=== PATIENT | female | born 1995 | race Caucasian/White ===

== ENCOUNTER 2019-10-02 19:21 | Emergency (ER) | payer OTHER, BC, SELFPAY ==
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
[2019-10-02 19:40] VITALS: BP 136/88; PULSE 97; RESP 22; TEMP 37.1; O2SAT 100
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
[2019-10-03 00:14] VITALS: BP 120/60; PULSE 80; RESP 20; O2SAT 100
== END 2019-10-03 00:15 | disposition home or self-care (01) ==
PROVIDERS: Emergency Provider Emergency Medicine; PCP Family Medicine
DX: M54.2 Cervicalgia (principal); S29.9XXA Unspecified injury of thorax, initial encounter; V49.40XA Driver injured in collision with unspecified motor vehicles in traffic accident, initial encounter
CPT/HCPCS: 72125; 72128; 81025; 99284

== ENCOUNTER 2021-09-12 07:00 | Emergency (ER) | payer BC, OTHER, SELFPAY ==
--- NOTE | ~2021-09-12 | US_ITS ---
EXAMINATION: US OB <=14 wk fetus w TV DATE: 09/12/2021 09:13 INDICATION: Vaginal bleeding during first trimester of TECHNIQUE: Real-time pelvic ultrasound utilizing both a transvaginal and transabdominal probe was pe rformed. The interpreting radiologist was not present for the study. COMPARISON: None. FINDINGS: The uterus measures 8.7 x 6.7 x 4.3 cm. There is an intrauterine gestational sac. A 1-2 mm yolk sac is identified but no definitive pole yet evident. The mean sac diameter measures 11 mm, which c orrelates with an estimated gestational age of 5 weeks and 2 days. The right ovary measures 3.4 x 2.5 x 2.0 cm. The left ovary measures 2.2 x 1.4 x 1.2 cm. Normal vascu lar flow with arterial and venous waveforms in both ovaries. There is small amount of anechoic free f luid in the cul-de-sac. IMPRESSION: 1. Single intrauterine gestational sac with yolk sac but no discernible pole likely due to matheus y stage of . 2. Gestational age by ultrasound based upon 11 mm mean sac diameter of 5 weeks 2 day(s) with ultraso und estimated date of delivery ([facility]) of 05/13/2022. Reviewed, dictated and finalized at location A. HING MANAGER IMPRESSION: 1. Single intrauterine gestational sac with yolk sac but no discernible p ole likely due to early stage of . 2. Gestational age by ultrasound based upon 11 mm mean sac diameter of 5 weeks 2 day(s) with ultrasound estimated date of delivery ([facility]) of 05/13/2022.
[2021-09-12 07:12] VITALS: BP 117/76; PULSE 98; RESP 16; TEMP 36.6; O2SAT 98
--- NOTE | 2021-09-12 07:32 | ED.FEMALEGU ---
HPI - Female Genitourinary General Chief complaint: DIE CASTER Stated complaint: 7 weeks , vaginal bleeding Time Seen by Provider: 09/12/21 07:31 Source: patient and family Mode of arrival: ambulatory Limitations: no limitations History of Present Illness HPI Narrative: Patient presents with sudden onset with nausea and vaginal bleeding that started this morning. Patient is 7 weeks , positive home test. Did not see any STONEWORKING BELT SANDER yet. Patient is one para zero zero. Last menstrual period July 29, 2021 patient is not vaccinated for COVID-19. Patient reports that her vaginal bleeding this morning feels like her menstrual cycle. Currently patient denying any symptoms. Related Data Home Medications Medication Instructions Recorded Confirmed prenat vit 17-ocml-hiaoh-om3,6 cap PO 09/12/21 Allergies Allergy/AdvReac Type Severity Reaction Status Date / Time No Known Allergies Allergy Verified 09/12/21 07:15 [facility] Social History Social History (Updated 10/02/19 @ 21:28 by Catherine Renner PA-C) Smoking status: Never smoker Substance use: never Gender identity (if verbalized by the patient): Female Exam Narrative: General appearance: Well-developed, well-nourished Skin: Normal color Head: Normocephalic, nontraumatic Eyes: Clear conjunctiva ENT: Oropharynx normal, ears normal, nose normal Neck: Supple, nontender Chest and respiratory: Airway patent, no respiratory distress, no accessory muscle use Heart: Regular rate/rhythm Abdomen: Soft, nontender, no organomegaly, quiet bowel sounds Vascular: Normal peripheral pulses, normal capillary refill. Musculoskeletal: Normal range of motion, nontender back Neurologic: Alert and oriented ?3, HABITAT MANAGEMENT COORDINATOR is normal as tested, no gross motor deficit : Speculum Exam - Vagina: normal appearance of the vagina and vaginal bleeding (Retaining dark red blood around the cervix, no active bleeding) Speculum Exam - Cervix: normal appearance of the cervix, normal palpation and Cervical os closed Bimanual exam- vagina & uterus: normal bimanual exam and normal palpation Course Course Emergency Course: Stable Vital Signs Vital signs: Vital Signs Temperature 36.6 C 09/12/21 07:12 Pulse Rate 98 09/12/21 07:12 Respiratory Rate 16 09/12/21 07:12 Blood Pressure 117/76 09/12/21 07:12 Pulse Oximetry 98 09/12/21 07:12 Temperature 36.6 C 09/12/21 07:12 Pulse Rate 98 09/12/21 07:12 Respiratory Rate 16 09/12/21 07:12 Blood Pressure 117/76 09/12/21 07:12 Pulse Oximetry 98 09/12/21 07:12 MDM - Female Genitourinary MDM Narrative Medical decision making narrative: Threatened , miscarriage is main concern. Differential Diagnosis Differential diagnosis: Likely other (Threatened , miscarriage) Lab Data Result diagrams: 09/12/21 07:35 Labs: Lab Results 09/12/21 09/12/21 09/12/21 Range/Units 07:35 07:35 07:35 WBC 6.9 (4.5-10.0) K/mm3 RBC 4.26 (4.2-5.4) M/mm3 Hgb 13.3 (12.0-15.0) g/dL Hct 38.9 (37.0-47.0) % MCV 91.3 (80-100) fl MCH 31.2 (26-34) pg MCHC 34.2 (32-36) g/dl RDW 11.6 (11.5-14.5) % Plt Count 205 (150-375) k/mm3 MPV 9.3 (7.4-10.4) fl Immature Gran % (Auto) 0.4 (0-0.5) % Neut % (Auto) 80.3 H (45.5-73.1) % Lymph % (Auto) 14.7 L (18.3-44.2) % [place] % (Auto) 4.4 (2.6-8.5) % Eos % (Auto) 0.1 (0-4.4) % Baso % (Auto) 0.1 L (0.2-1.2) % Lymph # (Auto) 1.01 (0.9-3.2) K/mm3 [place] # (Auto) 0.3 (0.1-0.6) K/mm3 Eos # (Auto) 0.0 (0-0.3) K/mm3 Baso # (Auto) 0.0 (0.0-0.1) K/mm3 Abs Immat Gran (auto) 0.03 (0.
[2021-09-12 07:43] LABS: Basophils Percent Auto 0.1 % (0.2-1.2); Eosinophils Percent Auto 0.1 % (0-4.4); Hematocrit 38.9 % (37.0-47.0); Hemoglobin 13.3 g/dL (12.0-15.0); Immature Granulocyte Absolute 0.03 K/mm3 (0.00-0.031); Immature Granulocyte Percent A 0.4 % (0-0.5); Lymphocytes Absolute Auto 1.01 K/mm3 (0.9-3.2); Lymphocytes Percent Auto 14.7 % (18.3-44.2); Mean Corpuscular HGB Conc 34.2 g/dl (32-36); Mean Corpuscular Hemoglobin 31.2 pg (26-34); Mean Corpuscular Volume 91.3 fl (80-100); Mean Platelet Volume 9.3 fl (7.4-10.4); Monocytes Absolute Auto 0.3 K/mm3 (0.1-0.6); Monocytes Percent Auto 4.4 % (2.6-8.5); Neutrophils Absolute Auto 5.5 K/mm3 (1.3-6.7); Neutrophils Percent Auto 80.3 % (45.5-73.1); Platelet Count Result 205 k/mm3 (150-375); Red Blood Count 4.26 M/mm3 (4.2-5.4); Red Cell Distribution Width 11.6 % (11.5-14.5); White Blood Count 6.9 K/mm3 (4.5-10.0)
--- NOTE | 2021-09-12 10:14 | PC.NURSE ---
pelvic exam performed by provider with marine underwriter assistance
[2021-09-12 10:42] VITALS: BP 109/72; PULSE 92; RESP 16; O2SAT 98
== END 2021-09-12 10:47 | disposition home or self-care (01) ==
PROVIDERS: Emergency Provider Emergency Medicine
DX: O20.0 Threatened abortion (principal); Z3A.01 Less than 8 weeks gestation of pregnancy
CPT/HCPCS: 36415; 76801; 76817; 84702; 85025; 85461; 99284

== ENCOUNTER 2022-05-05 08:28 | Emergency (ER) | payer BC, OTHER, SELFPAY ==
[2022-05-05 08:37] VITALS: BP 105/75; PULSE 91; RESP 16; TEMP 36.5; O2SAT 98
--- NOTE | 2022-05-05 08:45 | ED.SKABFB ---
HPI - Skin/Abscess/Foreign Bdy General Chief complaint: Skin/Abscess/Foreign Body Stated complaint: RASH Time Seen by Provider: 05/05/22 08:45 Source: patient and old records reviewed Mode of arrival: ambulatory Limitations: no limitations History of Present Illness HPI narrative: 26-year-old female who presents to [facility] with complaints of rash to her lower abdomen which started 1 to 2 weeks ago she contacted her GAS CUTTING MACHINE OPERATOR and received some antifungal cream which has not helped. Patient says yesterday rash is now spread to her feet and hands it is itchy it does lana. Patient denies any new hair products, no new soaps, no new new laundry detergents, no new medications or foods, has not been outside in the grass or in the matias. Patient's been taking Benadryl also for the itch is very uncomfortable. complaint: rash Onset (ago): week(s) (1-2 weeks with increase yesterday) Treatments prior to arrival: Benadryl and other (fungal cream ordered by LAMP SHADE SEWER) Related Data Home Medications Medication Instructions Recorded Confirmed 17-iron(35 mg-5 mg)-folic 1 cap PO DAILY 09/12/21 05/05/22 acid 1.2 mg-fish oil 400 mg capsule Allergies Allergy/AdvReac Type Severity Reaction Status Date / Time No Known Allergies Allergy Verified 05/05/22 08:36 Review of Systems Review of Systems: CONSTITUTIONAL: Denies fever, chills, or sweats. EYES: Denies visual changes, redness, or discharge. ENT: Denies rhinorrhea, congestion, sore throat, or otalgia. CARDIOVASCULAR: Denies chest pain, palpitations, or edema. RESPIRATORY: Denies cough or dyspnea. GASTROINTESTINAL: Denies abdominal pain, nausea, vomiting, or diarrhea. GENITOURINARY: Denies dysuria or hematuria. SKIN: Positive for rash on abdomen or itching, spread yesterday to hands and feet. MUSCULOSKELETAL: Denies back pain, joint pain, or myalgia. NEUROLOGIC: Denies headache, numbness, or weakness. PSYCHIATRIC: Denies anxiety or depression. All systems reviewed & are unremarkable except as noted in HPI and below PMFSH Past Medical History Medical History (Updated 05/05/22 @ 09:10 by Teagan Suarez NP) Kidney stone Family History Family History (Updated 04/17/22 @ 13:39 by Guilherme Armendariz RN) Mother High cholesterol Father Hypertension Grandparent Pancreas cancer Diabetes mellitus Grandparent Cervical cancer Social History Social History (Updated 10/02/19 @ 21:28 by Catherine Renner PA-C) Smoking status: Never smoker Substance use: never Gender identity (if verbalized by the patient): Female Spiritual care concerns: No Comments At time of signature, agree with nursing past medical, surgical, social and family history. There is no relevant family history pertinent to the presenting complaint Exam Narrative: GENERAL: Well-appearing, well-nourished, and in no acute distress. HEAD: Normocephalic, atraumatic. EYES: PERRLA and EOMI. ENT: Nares clear, no rhinorrhea or epistaxis. Mucous membranes moist. TMs normal with good light reflex throat pink with no lesions or exudates no tonsillar swelling noted NECK: Supple. No lymphadenopathy CHEST: Clear to auscultation. No respiratory distress. SaO2 98% on room air no tachypnea HEART: Regular rate and rhythm. No murmur heard. Normal peripheral pulses. ABDOMEN: Soft, nontender, nondistended, normal active bowel sounds. EXTREMITIES: Normal range of motion. No edema. SKIN: Warm, dry, rash to lower abdomen along stretch wright no pustules noted. Fine red raised rash on hands and feet which started yesterday NEURO: No focal deficits. Alert and oriented x3. Course Course Level of Care: Express Care Visit Vital Signs Vital signs: Vital Signs Temperature 36.5 C 05/05/22 08:37 Pulse Rate 91 05/05/22 08:37 Respiratory Rate 16 05/05/22 08:37 Blood Pressure 105/75 05/05/22 08:37 Pulse Oximetry 98 05/05/22 08:37 Oxygen Delivery Room Air 05/05/22 08:37 Temperature 36.5 C 09
== END 2022-05-05 09:22 | disposition home or self-care (01) ==
PROVIDERS: Emergency Provider Registered Nurse; Referring Provider Family Medicine
DX: O99.719 Diseases of the skin and subcutaneous tissue complicating pregnancy, unspecified trimester (principal); Z3A.00 Weeks of gestation of pregnancy not specified; L25.9 Unspecified contact dermatitis, unspecified cause; O26.86 Pruritic urticarial papules and plaques of pregnancy (PUPPP)
CPT/HCPCS: 99213; G0463

== ENCOUNTER 2022-05-15 17:55 | Inpatient (IN) | payer BC, OTHER, SELFPAY ==
[2022-05-15] VITALS (16 sets, daily range): BP systolic 107–123; BP diastolic 72–86; PULSE 78–102; TEMP 36.1–37.6; BMI 30.2
[2022-05-15 19:02] LABS: Basophils Percent Auto 0.1 % (0.2-1.2); Eosinophils Absolute Auto 0.1 K/mm3 (0-0.3); Eosinophils Percent Auto 1.2 % (0-4.4); Hematocrit 37.6 % (37.0-47.0); Immature Granulocyte Absolute 0.07 K/mm3 (0.00-0.031); Immature Granulocyte Percent A 0.8 % (0-0.5); Lymphocytes Absolute Auto 1.85 K/mm3 (0.9-3.2); Lymphocytes Percent Auto 20.7 % (18.3-44.2); Mean Corpuscular HGB Conc 31.9 g/dl (32-36); Mean Corpuscular Hemoglobin 28.8 pg (26-34); Mean Corpuscular Volume 90.2 fl (80-100); Mean Platelet Volume 10.5 fl (7.4-10.4); Monocytes Absolute Auto 0.6 K/mm3 (0.1-0.6); Monocytes Percent Auto 6.4 % (2.6-8.5); Neutrophils Absolute Auto 6.3 K/mm3 (1.3-6.7); Neutrophils Percent Auto 70.8 % (45.5-73.1); Platelet Count Result 182 k/mm3 (150-375); Red Blood Count 4.17 M/mm3 (4.2-5.4); Red Cell Distribution Width 13.1 % (11.5-14.5); White Blood Count 8.9 K/mm3 (4.5-10.0)
[2022-05-15] MEDS: DINOPROSTONE 10 MG VAG INSERT VAGINAL (19:28)
--- NOTE | 2022-05-15 19:56 | LDADM ---
This patient, Dinesh Kang, was admitted to Labor/Delivery/Recovery 106 on 05/15/22 at 17:55. Plans for labor, pain management and were discussed with patient. Patient/family oriented to hospital policies and general routines including ID bracelet, bed and alarms, visiting hours, pain management, procedures, bathroom and other care routines, personal items, smoking policy, room service/diet and guest tray routines, security routines, and visiting hours. Patient/Family are encouraged to report perceived risks to care and to ask questions if they do not understand what they are told or what they should do. See OBIX for further documentation.
--- NOTE | 2022-05-15 20:51 | WPDANESEPP ---
Anes - Eval Pre Procedure Procedure: labor epidural Date/Time: 05/15/22 20:51 Pre Op Diagnosis: IOL Patient Data Age: 26 Gender: F Height: 1.57 m Weight: 75 kg Last Vital Signs Temp 36.2 C L 05/15/22 20:08 Pulse 79 05/15/22 20:30 BP 107/72 05/15/22 20:30 O2 Del Method Room Air 05/15/22 19:51 Allergies Allergy/AdvReac Type Severity Reaction Status Date / Time No Known Allergies Allergy Verified 05/15/22 20:06 Home Medications Medication Instructions Recorded Confirmed Type 17-iron(35 mg-5 mg)-folic 1 cap PO DAILY 09/12/21 05/15/22 History acid 1.2 mg-fish oil 400 mg capsule triamcinolone acetonide 0.1 % 1 applic topical BID #80 grams 05/05/22 Rx topical ointment Laboratory Tests 05/15/22 05/15/22 05/15/22 18:27 18:27 18:27 WBC 8.9 K/mm3 K/mm3 (4.5-10.0) RBC 4.17 M/mm3 L M/mm3 (4.2-5.4) Hgb 12.0 g/dL g/dL (12.0-15.0) Hct 37.6 % % (37.0-47.0) MCV 90.2 fl fl (80-100) MCH 28.8 pg pg (26-34) MCHC 31.9 g/dl L g/dl (32-36) RDW 13.1 % % (11.5-14.5) Plt Count 182 k/mm3 k/mm3 (150-375) MPV 10.5 fl H fl (7.4-10.4) Immature Gran % (Auto) 0.8 % H % (0-0.5) Neut % (Auto) 70.8 % % (45.5-73.1) Lymph % (Auto) 20.7 % % (18.3-44.2) [place] % (Auto) 6.4 % % (2.6-8.5) Eos % (Auto) 1.2 % % (0-4.4) Baso % (Auto) 0.1 % L % (0.2-1.2) Lymph # (Auto) 1.85 K/mm3 K/mm3 (0.9-3.2) [place] # (Auto) 0.6 K/mm3 K/mm3 (0.1-0.6) Eos # (Auto) 0.1 K/mm3 K/mm3 (0-0.3) Baso # (Auto) 0.0 K/mm3 K/mm3 (0.0-0.1) Abs Immat Gran (auto) 0.07 K/mm3 H K/mm3 (0.00-0.031) Absolute Neuts (auto) 6.3 K/mm3 K/mm3 (1.3-6.7) Absolute Nucleated RBC 0.0 K/mm3 K/mm3 (0.0-0.012) Nucleated RBC % 0.0 % % (0.0-0.2) RPR Pending Blood Type A Positive Antibody Screen Negative Patient hx anesthesia problems: none Family hx anesthesia problems: none Results Review: All pre-operative results and documents have been reviewed as part of the pre-operative evaluation. [facility] Past Medical History Medical History Kidney stone Family History Family History Mother High cholesterol Father Hypertension Grandparent Pancreas cancer Diabetes mellitus Grandparent Cervical cancer Social History Social History Smoking status: Never smoker Substance use: never Gender identity (if verbalized by the patient): Female Spiritual care concerns: No Exam Day of Procedure 05/15/22 20:51 Patient weight: obese Heart: regular rate and rhythm Lungs: normal air movement Airway: Mallampati scale class II Neurological: alert and oriented
--- NOTE | 2022-05-15 22:27 | PM.IMHP ---
H&P: HPI History of Present Illness Date/Time: 05/15/22 22:27 Chief Complaint: Next of labor at term Narrative: venkat 20- last menstrual period was 07/29/2020 EDC is 18/2 presents at40+ weeks gestation induction labor. isyear-old she is negative for group B strep PMFSH Past Medical History Medical History Kidney stone Family History Family History Mother High cholesterol Father Hypertension Grandparent Pancreas cancer Diabetes mellitus Grandparent Cervical cancer Social History Social History Smoking status: Never smoker Substance use: never Gender identity (if verbalized by the patient): Female Spiritual care concerns: No Meds Home Medications and Allergies Home Medications Medication Instructions Recorded Confirmed Type 17-iron(35 mg-5 mg)-folic 1 cap PO DAILY 09/12/21 05/15/22 History acid 1.2 mg-fish oil 400 mg capsule triamcinolone acetonide 0.1 % 1 applic topical BID #80 grams 05/05/22 Rx topical ointment Allergies Allergy/AdvReac Type Severity Reaction Status Date / Time No Known Allergies Allergy Verified 05/15/22 20:06 Vital Signs Vital Signs - 24 hr 05/15/22 18:27 05/15/22 18:30 05/15/22 19:00 Temperature Pulse Rate 84 95 84 Blood Pressure 120/80 120/85 109/77 Oxygen Delivery 05/15/22 19:30 05/15/22 19:16 05/15/22 20:01 Temperature 97 F L Pulse Rate 89 85 Blood Pressure 119/86 111/74 Oxygen Delivery 05/15/22 20:08 05/15/22 20:30 05/15/22 21:00 Temperature 97.2 F L Pulse Rate 79 87 Blood Pressure 107/72 118/79 Oxygen Delivery 05/15/22 21:31 05/15/22 22:00 05/15/22 19:51 Temperature Pulse Rate 79 102 H Blood Pressure 123/76 110/80 Oxygen Delivery Room Air Exam Const: General: cooperative, healthy appearing and comfortable Nutritional Appearance: average body habitus and well nourished Orientation/consciousness: oriented to person, oriented to place and oriented to time Chest: Chest palpation & inspection: normal inspection of the chest Resp: Effort & Inspection: normal respiratory effort Cardio: Rate: regular rate Rhythm: regular rhythm Heart sounds: S1 normal heart sound present and S2 normal heart sound present GI: Inspection: normal to inspection Auscultation: normal bowel sounds : Speculum Exam - Vagina: normal appearance of the vagina Speculum Exam - Cervix: normal appearance of the cervix and Cervical os open ( cervix/ 50%. FHTs reassuring) H&P: Results Labs Labs: Short CBC 05/15/22 Range/Units 18:27 WBC 8.9 (4.5-10.0) K/mm3 Hgb 12.0 (12.0-15.0) g/dL Hct 37.6 (37.0-47.0) % Plt Count 182 (150-375) k/mm3 Assessment and Plan Assessment and plan (1) Term : Code(s): Z34.90 - Encounter for supervision of normal , unspecified, unspecified trimester Status: Acute Plan medical induction of labor. Spontaneous vaginal delivery is expected. She is an epidural candidate
[2022-05-15] MEDS: FAMOTIDINE 20 MG/2 ML VIAL IV PUSH (23:38)
[2022-05-16] VITALS (267 sets, daily range): BP systolic 91–149; BP diastolic 55–130; PULSE 65–174; TEMP 36.2–37.6; O2SAT 80–100
[2022-05-16 05:31] LABS: Rapid Plasma Reagin Non-Reactive (NonReactive)
[2022-05-16] MEDS: ACETAMINOPHEN 325 MG TABLET 650 MG PO (05:56)
[2022-05-16] MEDS: LACTATED RINGERS 1,000 ML 125 ML IV CONT ×3 (06:10→15:35)
[2022-05-16] MEDS: OXYTOCIN 30 UNITS/NS 500 ML 30 UNITS/500 ML BAG 6 UNITS IV CONT (06:10)
--- NOTE | 2022-05-16 07:36 | PM.OBPNLAB ---
Pain Control Date/time seen: 05/16/22 07:36 Pain control: tolerating well Pelvic Exam Dilation (cm): 3 Effacement (%): 80 station: -2 Amniotic membrane status: Ruptured Comments: Clear fluid noted Contractions Monitor mode: External Contraction frequency: 3
--- NOTE | 2022-05-16 11:51 | PM.OBPNLAB ---
Pain Control Date/time seen: 05/16/22 11:51 Pain control: tolerating well and epidural Pelvic Exam Dilation (cm): 5 Effacement (%): 80 station: -2 Amniotic membrane status: Ruptured Contractions Monitor mode: External Contraction frequency: 3
--- NOTE | 2022-05-16 15:50 | PM.OBPNLAB ---
Pain Control Date/time seen: 05/16/22 15:50 Pain control: tolerating well and epidural Pelvic Exam Dilation (cm): 8 Effacement (%): 100 station: -1 Amniotic membrane status: Ruptured Contractions Monitor mode: External Contraction frequency: 3
[2022-05-16] MEDS: SODIUM CHLORIDE 0.9% IV 300 ML 600 ML I-UTERINE (17:25)
[2022-05-17] VITALS (15 sets, daily range): BP systolic 100–132; BP diastolic 57–82; PULSE 68–92; RESP 16–20; TEMP 36.2–36.5; O2SAT 97–100
--- NOTE | 2022-05-17 00:10 | PM.OBPRVD ---
OB - Delivery Note Procedure Delivery date: 05/17/22 Induction method: AROM Delivery augmentation: Pitocin Delivery monitor: External FHT and Internal Uterine Route of delivery: Episiotomy description: None Laceration Description: Perineal - 1st Degree Quantitative Blood Loss (ml): 59 Anesthesia type: Epidural Disposition: Floor Baby Date of : 05/17/22 Time of : 23:40 Weeks of gestation at delivery: 40 gender: Male Weight (pounds): 8 Weight (ounces): 4 presentation: vertex position: Right Occiput Anterior Placenta delivery description: Spontaneous Cord Vessel Description: 3 Vessels, Nuchal Cord and Loose score one minute: 7 score five minutes: 9
[2022-05-17] MEDS: IBUPROFEN 600 MG TABLET PO ×3 (00:28→17:23)
[2022-05-17] MEDS: BENZOCAINE 20% AER SPR (*SP) 56 GM CAN 1 SPRAY TOPICAL (02:12)
[2022-05-17] MEDS: WITCH HAZEL 40 PADS 1 PAD TOPICAL (02:12)
--- NOTE | 2022-05-17 02:40 | PC.NURSE ---
Patient transferred to post room # [id number] via ( w/c ). Support person present. Oriented to unit, room, information board, rooming in, admission packet and security measures. Patient verbalizes understanding.
--- NOTE | 2022-05-17 06:18 | PM.OBPNVD ---
OB - PN: Subj Subjective Date/time seen: 05/17/22 06:18 Patient comments: no complaints and pain well controlled baby status: doing well and nursing well OB - PN: Obj Data Labs CBC & Chem 7: 05/15/22 18:27 OB - PN A/P Plan day: 1 Plan: routine care Time Spent With Patient Time: Total time spent is greater than 50% in coordination of care (as documented) at patient's floor/unit and/or counseling patient: Time with patient: less than 15 minutes
--- NOTE | 2022-05-17 07:00 | PC.NURSE ---
Pt introductions made and plan of care discussed per post , pain management, breast feeding, daily care activities. PT and spouse both recipients of such instructions and no barriers to learning identified at this time. PT received during this shift these instructions per one to one discussion, mom baby care guide and demonstrations. Pt verbalized understanding of such care.
[2022-05-17] MEDS: MULTIVIT/MIN/PREN/FOL AC/IRON TABLET 1 TAB PO (11:50)
[2022-05-17] MEDS: ACETAMINOPHEN 325 MG TABLET 650 MG PO ×2 (11:50→17:21)
--- NOTE | 2022-05-17 12:46 | WPDANLDPN2 ---
Anes-Prog Note L&D Date/Time: 05/17/22 12:46 Neuro status: Neuro function grossly intact. Cardiovascular status: normal Respiratory status: normal Airway patency: baseline Mental status: baseline Post-Op hydration status: normal Vital Signs: Last Vital Signs Temp 36.2 C L 05/17/22 08:45 Pulse 76 05/17/22 08:45 Resp 18 05/17/22 08:45 BP 112/82 05/17/22 08:45 Pulse Ox 98 05/17/22 08:45 O2 Del Method Room Air 05/17/22 03:15 Pain score (VAS): 2 I/O: Intake & Output 05/16/22 05/17/22 05/17/22 23:59 07:59 15:59 Intake Total 1100 Output Total 759 148 Balance -759 952 Post-procedural complaints: none Patient feedback: Patient satisfied with anesthetic care.
--- NOTE | 2022-05-17 15:38 | PC.NURSE ---
[id number] Introductions were made, then consulted with patient to assess needs related to . Mother led the conversation with her?plans to feed?her infant and the?experience so far. Resources provided for inpatient and outpatient services using a resource guide and mom/baby guide. Mother voiced understanding of information and requested assistance. Introductions were made, then consulted with patient to assess needs related to . Mother led the conversation with her experience feeding her so far. Mother works well with her with encouragement and education. Encouraged understanding of the benefits of skin to skin (unwrapping infant and placing vertically on her chest), responsive feeding and how to watch for early feeding signs, frequency of feeding on demand about every 8-12 times in 24 hours (every 2-3 hours), milk production, hand expression, duration of feeding, signs of adequate intake/output (with the pie demonstration), stimulating infant for feedings with unwrapping, checking the diaper, massage touch and how to record on the feeding sheet. Reviewed positioning and ear, shoulder, hip alignment, supporting the breast, asymmetrical latch (off-center), and leading with the chin with a big open side gape. latched optimally to the left breast in football position with no discomfort for 5 minutes. Mother voiced understanding of the rocking motion of an effective latch and sucking. place skin to skin, then after feeding cues were visualized infant was assisted to the right breast using football positioning. Education given to mother of how to visualize suck/swallow ratios and listening for drinking at the breast. Infant was able to maintain latch without discomfort to mother. Nipple care reviewed with optimal latch and good positioning. Reviewed good handwashing when or touching the breast/nipples to prevent infection. Resources used to facilitate learning were used with the visual handouts, tool, mom and baby guide. Mother voiced understanding of responsive feedings, stimulating with skin to skin, hand expressed colostrum, massage touch, talking to to encourage if it has been 2 -3 hours since the start of the last , to call if infant does not latch or there is discomfort with .
[2022-05-17] MEDS: DOCUSATE SODIUM 100 MG CAPSULE PO (17:20)
[2022-05-18 05:44] LABS: Hematocrit 31.8 % (37.0-47.0); Hemoglobin 9.9 g/dL (12.0-15.0)
--- NOTE | 2022-05-18 06:26 | P.DS_ITS ---
DS: Admitting Diagnosis Discharge Date 05/18/2022 Admitting Diagnosis term DS: Discharge Diagnosis Discharge Diagnosis (1) Term : Code(s): Z34.90 - Encounter for supervision of normal , unspecified, unspecified trimester Status: Acute DS: Summary Hospital Course Reason for hospitalization: term for d Hospital Course: roverto patient was admitted at term in active labor she underwent spontaneous vaginal delivery. Her hospital course unremarkable. She remained afebrile. She was up, voiding without difficulty, ambulating, generally without complaints. Routine discharge instructions were given Time Spent with Patient Time attestation: Total time spent providing and/or coordinating discharge services: DS: Data Data Completed and Pending Labs on day of discharge: Labs from last 24 hours 05/18/22 04:08 Hgb 9.9 L Hct 31.8 L Discharge Plan Discharge Attending physician on discharge: Armando Galaviz Discharging Clinician: Armando Galaviz Patient Disposition: Home, Self-Care Activity: may shower, no straining and pelvic rest Diet: heart healthy Wound Care Instructions: follow printed instructions Patient Instructions: Antibiotic Form Stand Alone Forms: General Discharge Information Follow-up/Referrals: Armando Galaviz MD [Physician] - Discharge Medications: New methylprednisolone [Medrol (Francis)] 4 mg tablets,dose pack 4 mg PO QAM Qty: 21 0RF No Action triamcinolone acetonide 0.1 % ointment 1 applic topical BID Qty: 80 0RF prenat vit 10-yuxx-wggae-om3,6 35-5-1.2-400 mg Capsule 1 cap PO DAILY Date of admission: 05/15/22 17:55 Primary Care Provider: PHYSICIAN,FUNERAL CAR DRIVER Admitting Provider: Armando Galaviz Attending physician on admission: Armando Galaviz Condition: Stable
[2022-05-18 08:40] VITALS: BP 123/75; PULSE 95; RESP 18; TEMP 36.3; O2SAT 99
[2022-05-18] MEDS: DOCUSATE SODIUM 100 MG CAPSULE PO (10:01)
[2022-05-18] MEDS: MULTIVIT/MIN/PREN/FOL AC/IRON TABLET 1 TAB PO (10:01)
[2022-05-18] MEDS: POLYSACCHARIDE IRON COMPLEX 150 MG CAPSULE PO (10:01)
[2022-05-18] MEDS: IBUPROFEN 600 MG TABLET PO (10:01)
[2022-05-18] MEDS: ACETAMINOPHEN 325 MG TABLET 650 MG PO (10:02)
--- NOTE | 2022-05-18 11:53 | PC.NURSE ---
[id number] - Consulting on the 3rd attempt this morning to discuss how is going. Mother led the conversation with her experience and plan to feed her infant so far and her ability to independently latch optimally without discomfort requesting an assessment at this time. Assisted parents in changing a wet and stool diaper, placed skin to skin with mother, then when feeding cues are visualized mother brings baby down to the left breast using cross cradle positioning. Mother demonstrates some hesitation, leading infant straight to the breast. Infant latched effectively with RN encouragement bringing infant's body tucked into mothers body, chin leading to the breast, demonstrated big, open, wide gape, then RN encouraged a deeper latch. Mother voiced understanding of the infant tucked into her body with a deeper latch and states there is no pain. Reminded parents to use good handwashing technique to prevent infection. Mother is feeding appropriately for growth of infant and understands stimulating to eat if needed. has had appropriate feedings in the last 24 hours meets the outcomes for weight, output and jaundice at this time. Mother states she is confident to continue effectively her at home or when to call for assistance and denies any additional assistance or education at this time. Reinforced understanding of milk production, transition of milk, signs of adequate intake, prevention/relief of engorgement, responsive after visualizing feeding cues, the different methods of stimulating infant to breastfeed 2-3 hours after the start of the last feeding, community resources, medication information reviewed per [facility] and when to call a provider using the resource of the mom and baby guide/[facility] website. Mother voiced understanding of the education shared.
[2022-05-21 13:13] VITALS: BP 118/89; PULSE 88; RESP 18; TEMP 36.3; O2SAT 99
== END 2022-05-18 12:09 | disposition home or self-care (01) | DRG 807 ==
LOC: ANHLDR 05-16 10:12 → ANHOB2 05-17 02:44
PROVIDERS: Admitting Provider Obstetrics & Gynecology; Visit Provider Obstetrics & Gynecology
DX: O76 Abnormality in fetal heart rate and rhythm complicating labor and delivery (principal); Z37.0 Single live birth; O70.0 First degree perineal laceration during delivery; O69.81X0 Labor and delivery complicated by cord around neck, without compression, not applicable or unspecified; Z3A.40 40 weeks gestation of pregnancy
CPT/HCPCS: 36415; 85014; 85018; 85025; 86592; 86850; 86900; 86901; A9270; J2590; J2795; J7030; J7120

== ENCOUNTER 2024-05-18 11:39 | Outpatient (RCR) | payer BC, SELFPAY | END 2024-08-16 23:59 | disposition home or self-care (01) | LOC: ANHOBOP 11:39 | PROVIDERS: Visit Provider Obstetrics & Gynecology | DX: O36.8190 Decreased fetal movements, unspecified trimester, not applicable or unspecified (principal) | CPT/HCPCS: 59025 ==

== ENCOUNTER 2024-08-03 04:52 | Inpatient (IN) | payer BC, SELFPAY ==
[2024-08-03] VITALS (106 sets, daily range): BP systolic 82–135; BP diastolic 49–101; PULSE 69–117; RESP 18; TEMP 36.4–37.5; O2SAT 95–100; BMI 29.8
[2024-08-03 06:09] LABS: Basophils Percent Auto 0.1 % (0.2-1.2); Eosinophils Absolute Auto 0.1 K/mm3 (0-0.3); Eosinophils Percent Auto 1.1 % (0-4.4); Hematocrit 31.8 % (37.0-47.0); Hemoglobin 10.1 g/dL (12.0-15.0); Immature Granulocyte Percent A 1.2 % (0-0.5); Lymphocytes Absolute Auto 1.76 K/mm3 (0.9-3.2); Lymphocytes Percent Auto 21.2 % (18.3-44.2); Mean Corpuscular HGB Conc 31.8 g/dl (32-36); Mean Corpuscular Hemoglobin 26.9 pg (26-34); Mean Corpuscular Volume 84.6 fl (80-100); Mean Platelet Volume 10.2 fl (7.4-10.4); Monocytes Absolute Auto 0.6 K/mm3 (0.1-0.6); Monocytes Percent Auto 6.6 % (2.6-8.5); Neutrophils Absolute Auto 5.8 K/mm3 (1.3-6.7); Neutrophils Percent Auto 69.8 % (45.5-73.1); Platelet Count Result 182 k/mm3 (150-375); Red Blood Count 3.76 M/mm3 (4.2-5.4); Red Cell Distribution Width 14.5 % (11.5-14.5); White Blood Count 8.3 K/mm3 (4.5-10.0)
--- NOTE | 2024-08-03 06:32 | PM.IMHP ---
H&P: HPI History of Present Illness Date/Time: 08/03/24 06:32 Chief Complaint: Induction of labor at term Narrative: 28 old 2 para 1 whose last menstrual period is unknown EDC is 08/09/2024, confirmed by 9 week and 4 day ultrasound presents at 39 weeks and this gestation for induction of labor. She had unremarkable . She is negative for group B strep. She desires permanent and irreversible sterilization as well and this was discussed several times throughout the .. Review of Systems Review of Systems: CONSTITUTIONAL: Denies fever, chills, or sweats. EYES: Denies visual changes, redness, or discharge. ENT: Denies rhinorrhea, congestion, sore throat, or otalgia. CARDIOVASCULAR: Denies chest pain, palpitations, or edema. RESPIRATORY: Denies cough or dyspnea. GASTROINTESTINAL: Denies abdominal pain, nausea, vomiting, or diarrhea. GENITOURINARY: Denies dysuria or hematuria. SKIN: Positive for rash on abdomen or itching, spread yesterday to hands and feet. MUSCULOSKELETAL: Denies back pain, joint pain, or myalgia. NEUROLOGIC: Denies headache, numbness, or weakness. PSYCHIATRIC: Denies anxiety or depression. All systems reviewed & are unremarkable except as noted in HPI and below PMFSH Past Medical History Medical History Kidney stone Family History Family History Mother High cholesterol Father Hypertension Grandparent Pancreas cancer Diabetes mellitus Grandparent Cervical cancer Social History Social History Smoking status: Never smoker Substance use: never Gender identity (if verbalized by the patient): Female Spiritual care concerns: No Meds Home Medications and Allergies Home Medications Medication Instructions Recorded Confirmed Type 17-iron(35 mg-5 mg)-folic 1 cap PO DAILY 09/12/21 05/15/22 History acid 1.2 mg-fish oil 400 mg capsule triamcinolone acetonide 0.1 % 1 applic topical BID #80 grams 05/05/22 Rx topical ointment methylprednisolone 4 mg tablets in 4 mg PO QAM #21 ea 05/18/22 Rx a dose pack (Medrol (Francis)) Allergies Allergy/AdvReac Type Severity Reaction Status Date / Time No Known Allergies Allergy Verified 07/11/24 12:33 Vital Signs Vital Signs - 24 hr 08/03/24 05:07 08/03/24 05:16 08/03/24 05:31 Pulse Rate 114 H 117 H 98 Blood Pressure 117/75 105/71 116/64 08/03/24 06:01 08/03/24 06:31 Pulse Rate 115 H 106 H Blood Pressure 101/65 101/87 Exam Const: General: cooperative, healthy appearing and comfortable Nutritional Appearance: average body habitus Orientation/consciousness: oriented to person, oriented to place and oriented to time HENMT: Head: normal to inspection Resp: Effort & Inspection: normal respiratory effort Cardio: Rate: regular rate Rhythm: regular rhythm Heart sounds: S1 normal heart sound present and S2 normal heart sound present GI: Inspection: normal to inspection ( Gravid soft uterus) : External Female Exam: normal external appearance Speculum Exam - Vagina: normal appearance of the vagina Speculum Exam - Cervix: normal appearance of the cervix ( cervix 2/50%/-2. AROM clear. FHT is reassuring) H&P: Results Labs Labs: Short CBC 08/03/24 Range/Units 05:41 WBC 8.3 (4.5-10.0) K/mm3 Hgb 10.1 L (12.0-15.0) g/dL Hct 31.8 L (37.0-47.0) % Plt Count 182 (150-375) k/mm3 Assessment and Plan Assessment and plan (1) Term : Code(s): Z34.90 - Encounter for supervision of normal , unspecified, unspecified trimester Status: Acute (2) Sterilization: Code(s): Z30.2 - Encounter for sterilization Status: Acute Assessment and Plan: proceed with medical induction of labor. Spontaneous vaginal delivery is expected. She is an epidural candidate. She desires tubal ligation
[2024-08-03 06:59] LABS: HIV 1/2 Ab P24 Ag Result Negative (Negative)
--- NOTE | 2024-08-03 07:13 | LDADM ---
This patient, Dinesh Kang, was admitted to Labor/Delivery/Recovery 107 on 08/03/24 at 04:52. Plans for labor, pain management and were discussed with patient. Patient/family oriented to hospital policies and general routines including ID bracelet, bed and alarms, visiting hours, pain management, procedures, bathroom and other care routines, personal items, smoking policy, room service/diet and guest tray routines, security routines, and visiting hours. Patient/Family are encouraged to report perceived risks to care and to ask questions if they do not understand what they are told or what they should do. See [facility]BI[facility] for further documentation.
[2024-08-03 07:21] LABS: Rapid Plasma Reagin Non-Reactive (NonReactive)
[2024-08-03] MEDS: OXYTOCIN 30 UNITS/NS 500 ML 30 UNITS/500 ML BAG IV CONT (07:38)
[2024-08-03] MEDS: LACTATED RINGERS 1,000 ML 125 ML IV CONT ×2 (07:39→11:14)
--- NOTE | 2024-08-03 09:55 | P.PNAN_ITS ---
Anes - Eval Pre Procedure Procedure: labor epidural Date/Time: 08/03/24 09:55 Preop Diagnosis: labor pain Pre Op Diagnosis: IOL Patient Data Age: 28 Gender: F Height: 1.57 m Weight: 74 kg Last Vital Signs Temp 36.8 C 08/03/24 08:30 Pulse 93 08/03/24 09:31 BP 109/75 08/03/24 09:31 Allergies Allergy/AdvReac Type Severity Reaction Status Date / Time No Known Allergies Allergy Verified 07/11/24 12:33 Home Medications Medication Instructions Recorded Confirmed Type 17-iron(35 mg-5 mg)-folic 1 cap PO DAILY 09/12/21 08/03/24 History acid 1.2 mg-fish oil 400 mg capsule Laboratory Tests 08/03/24 05:41 WBC 8.3 K/mm3 (4.5-10.0) RBC 3.76 L M/mm3 (4.2-5.4) Hgb 10.1 L g/dL (12.0-15.0) Hct 31.8 L % (37.0-47.0) MCV 84.6 fl (80-100) MCH 26.9 pg (26-34) MCHC 31.8 L g/dl (32-36) RDW 14.5 % (11.5-14.5) Plt Count 182 k/mm3 (150-375) MPV 10.2 fl (7.4-10.4) Immature Gran % (Auto) 1.2 H % (0-0.5) Neut % (Auto) 69.8 % (45.5-73.1) Lymph % (Auto) 21.2 % (18.3-44.2) [place] % (Auto) 6.6 % (2.6-8.5) Eos % (Auto) 1.1 % (0-4.4) Baso % (Auto) 0.1 L % (0.2-1.2) Lymph # (Auto) 1.76 K/mm3 (0.9-3.2) [place] # (Auto) 0.6 K/mm3 (0.1-0.6) Eos # (Auto) 0.1 K/mm3 (0-0.3) Baso # (Auto) 0.0 K/mm3 (0.0-0.1) Abs Immat Gran (auto) 0.10 H K/mm3 (0.00-0.031) Absolute Neuts (auto) 5.8 K/mm3 (1.3-6.7) Absolute Nucleated RBC 0.000 K/mm3 (0.0-0.012) Nucleated RBC % 0.0 % (0.0-0.2) RPR Non-reactive (NonReactive) HIV 1&2 Ab/P24 Ag 4thGn Negative (Negative) Blood Type A Positive Antibody Screen Negative Patient hx anesthesia problems: none Family hx anesthesia problems: none Results Review: All pre-operative results and documents have been reviewed as part of the pre- operative evaluation. PENDING SALE TO [facility] Past Medical History Medical History Kidney stone Family History Family History Mother High cholesterol Father Hypertension Grandparent Pancreas cancer Diabetes mellitus Grandparent Cervical cancer Social History Social History Smoking status: Never smoker Second hand tobacco smoke exposure: No Substance use: never Do You Feel Safe in your Home?: Yes Lack of Transportation: No Lack of Food: Never True Current Housing: I Have Housing Concerned About Future Housing: No Difficulty Paying Gas/Electric Bills: No Difficulty Paying for Meds: No Currently Unemployed: No Education: High School Diploma/GED Difficulty w/ Childcare or Family Care: No Gender identity (if verbalized by the patient): Female Spiritual care concerns: No Exam Day of Procedure 08/03/24 09:55 Patient weight: normal Heart: regular rate and rhythm Lungs: clear to auscultation and normal air movement Airway: Mallampati scale class II Neurological: alert and oriented
--- NOTE | 2024-08-03 12:13 | PM.OBPNLAB ---
Pain Control Date/time seen: 08/03/24 12:13 Pain control: tolerating well and epidural Pelvic Exam Dilation (cm): 2 Effacement (%): 75 station: -1 Amniotic membrane status: Leaking
--- NOTE | 2024-08-03 14:56 | PM.OBPRVD ---
OB - Vaginal Delivery Note Procedure Delivery date: 08/03/24 Events: Elective Induction of Labor Induction method: AROM Delivery augmentation: Pitocin Delivery monitor: External FHT and External Uterine Route of delivery: Episiotomy description: None Laceration Description: None Specimen: No Quantitative Blood Loss (ml): 62 Anesthesia type: Epidural Disposition: PACU Complications: No immediate complications Narrative: Patient was admitted for induction of labor and early a.m.. She progressed unremarkable 1st stage of labor with epidural anesthesia when she was complete she pushed delivered head spontaneously in the HAYLEY position. Anterior posterior shoulder delivered spontaneously. Cord clamped x2 and cut infant placed in warmer given Apgars of 8 [id number]. Cord blood was drawn. Placenta delivered intact spontaneously. 20units Pitocin placed IV to help firm the uterus. The vagina was inspected no injury seen blood loss was 62cc. All sponge, needle, instrument counts were correct. [place] Baby Date of : 08/03/24 Time of : 11:49 gender: Female presentation: vertex position: Left Occiput Anterior Placenta delivery description: Spontaneous Cord Vessel Description: 3 Vessels score one minute: 8 score five minutes: 9
--- NOTE | 2024-08-03 14:58 | P.DS_ITS ---
DS: Admitting Diagnosis Discharge Date 08/04/2024 Admitting Diagnosis Term /sterilization DS: Discharge Diagnosis Discharge Diagnosis (1) Sterilization: Code(s): Z30.2 - Encounter for sterilization Status: Acute (2) Term : Code(s): Z34.90 - Encounter for supervision of normal , unspecified, unspecified trimester Status: Acute DS: Summary Hospital Course Reason for hospitalization: patient underwent spontaneous vaginal delivery by induction of labor with epidural anesthesia on 08/03/2024 at 2:49 p.m.. She had a tubal liga tion on day 1 her Hospital Course: hospital course was unremarkable. She remained afebrile. She was up, without difficulty, eating regular diet, ambulating, generally without complaints. Time Spent with Patient Time attestation: Total time spent providing and/or coordinating discharge services: Exam Const: General: cooperative, healthy appearing and comfortable Nutritional Appearance: average body habitus Orientation/consciousness: oriented to person, oriented to place and oriented to time HENMT: Head: normal to inspection Resp: Effort & Inspection: normal respiratory effort Cardio: Rate: regular rate Rhythm: regular rhythm Heart sounds: S1 normal heart sound present and S2 normal heart sound present GI: Inspection: normal to inspection ( Fundus firm below the umbilicus) and incision ( wound clean dry and intact) DS: Data Data Completed and Pending Labs on day of discharge: Labs from last 24 hours 08/03/24 05:41 WBC 8.3 RBC 3.76 L Hgb 10.1 L Hct 31.8 L MCV 84.6 MCH 26.9 MCHC 31.8 L RDW 14.5 Plt Count 182 MPV 10.2 Immature Gran % (Auto) 1.2 H Neut % (Auto) 69.8 Lymph % (Auto) 21.2 [place] % (Auto) 6.6 Eos % (Auto) 1.1 Baso % (Auto) 0.1 L Lymph # (Auto) 1.76 [place] # (Auto) 0.6 Eos # (Auto) 0.1 Baso # (Auto) 0.0 Abs Immat Gran (auto) 0.10 H Absolute Neuts (auto) 5.8 Absolute Nucleated RBC 0.000 Nucleated RBC % 0.0 RPR Non-reactive HIV 1&2 Ab/P24 Ag 4thGn Negative Blood Type A Positive Antibody Screen Negative Discharge Plan Discharge Attending physician on discharge: Armando Galaviz Discharging Clinician: Armando Galaviz Patient Disposition: Home, Self-Care Activity: may shower and pelvic rest Diet: regular Wound Care Instructions: follow printed instructions Discharge Instructions: Education: Mom and Baby Guide Given to: Follow-Up: Call your delivering provider's office for an appointment to be seen in: 4 weeks Mom and baby should come to the [facility] for the follow-up appointment. Appointment Date/Time: 08/06/24 at 10:00am What to expect at your follow-up visit: Call [phone] if you are unable to keep your appointment time. BREAST CARE: * Wear a snug supportive bra. * For engorgement discomfort: Breast Feeding: * Apply warm moist washcloths * Express milk as needed to relieve engorgement * Wear loose clothing Bottle Feeding: * May apply ice packs * For sore nipples: * Identify correct latch-on * Apply warm moist washcloths before and after nursing * Air dry nipples after nursing * May apply Lansinoh cream to nipples ABDOMINAL INCISION: * Allow incision to air dry * Do NOT use lotions for powders on your incision * When showering, allow soap and water to run over the incision, but do not wash incision EPISIOTOMY/PERINEAL CARE: * Until bleeding stops, use your silvio bottle after urinating * Change your pad frequently throughout the day * You may take sitz baths several times a day (fill your bathtub with warm water and soak for 20 minutes.) Do NOT bathe in the water * No tub baths until seen by your physician - You may shower ACTIVITY: * Rest as much as possible. * Do not exercise or lift anything heavier than your baby (such as laundry or other children.) * Avoid stairs or driving as much as possible. * Do not put anything into the vagina. No douching, tampons, or sexual activity until seen by physician. NOTIFY PHYSICIAN IF YOU HAVE ANY QUESTIONS OR IF ANY OF THE FOLLOWING SYMPTOMS OCCUR: * If your perineum or incision becomes red, swollen, or more painful than what you have experienced in the hospital. * If your vaginal bleeding becomes foul smelling. * If your vaginal bleeding becomes more heavy than a period or if your bleeding changes from pink to bright red. However, you may pass an occasional walnut- sized clot once or twice for the first week . * If you experience a sharp, shooting pain in you calves. * If you discover a hard, reddened area on your breast or if you experience flu- like symptoms. DIET: * Eat regular, well-balanced meals. * Drink plenty of fluids daily. If , drink to thirst. Patient Instructions: Your Baby (DC), Vaginal Delivery (DC), Tubal Ligation (DC) Patient Language: [place] Irish Stand Alone Forms: General Discharge Information Follow-up/Referrals: Armando Galaviz MD [Physician] - Discharge Medications: New hydrocodone-acetaminophen 5-325 mg tablet 1 tablet PO Q4H PRN (Reason: pain) Qty: 20 0RF Continued prenat vit 39-jzeb-ghxox-om3,6 35-5-1.2-400 mg Capsule 1 cap PO DAILY Date of admission: 08/03/24 04:52 Primary Care Provider: PHYSICIAN,DIGITAL MARKETING SPECIALIST Admitting Provider: Armando Galaviz Attending physician on admission: Armando Galaviz Condition: Stable
[2024-08-03] MEDS: OXYTOCIN 30 UNITS/NS 500 ML 30 UNITS/500 ML BAG 125 UNITS IV CONT (15:22)
[2024-08-03] MEDS: IBUPROFEN 600 MG TABLET PO (18:07)
[2024-08-04] VITALS (9 sets, daily range): BP systolic 100–121; BP diastolic 51–76; PULSE 76–102; RESP 14–18; TEMP 36.4–36.9; O2SAT 95–100
--- NOTE | 2024-08-04 06:57 | WPDHPUPDATE1 ---
History and Physical Update Update Date/Time: 08/04/24 06:57 History and Physical has been reviewed, including an updated exam of the patient. There are NO changes in the patient's condition. Risks, benefits, and alternatives have been discussed and questions answered. Patient agrees to proceed with procedure. patient to proceed with btl
--- NOTE | 2024-08-04 06:58 | P.PNOB_ITS ---
OB - PN: Subj Subjective Date/time seen: 08/04/24 06:58 Patient comments: no complaints and pain well controlled OB - PN: Obj Data Labs 08/03/24 05:41 Labs: Laboratory Results - last 24 hr 08/03/24 05:41 RPR Non-reactive HIV 1&2 Ab/P24 Ag 4thGn Negative Antibody Screen Negative OB - PN A/P Assessment and Plan (1) Sterilization: Code(s): Z30.2 - Encounter for sterilization Status: Acute Plan Comments: proceed with btl Time Spent With Patient Time: Total time spent is greater than 50% in coordination of care (as documented) at patient's floor/unit and/or counseling patient: Exam 2 Const: General: cooperative, healthy appearing and comfortable Nutritional Appearance: average body habitus
[2024-08-04] MEDS: LACTATED RINGERS 1,000 ML 30 ML IV CONT (07:00)
--- NOTE | 2024-08-04 07:09 | P.PNAN_ITS ---
Anes - Initial Pre Proc Eval Procedure: Operation Date: 08/04/24 07:30 Proposed Procedures p Post- Tubal Ligation - Armando Walker MD Date/Time: 08/04/24 07:09 Surgeon: Armando Walker MD Pre Op Diagnosis: IOL Patient Data Age: 28 Gender: F Height: 1.57 m Weight: 74 kg Last Vital Signs Temp 36.4 C L 08/03/24 23:51 Pulse 95 08/03/24 23:51 Resp 18 08/03/24 23:51 BP 118/77 08/03/24 23:51 Pulse Ox 99 08/03/24 23:51 O2 Del Method Room Air 08/03/24 19:38 Allergies Allergy/AdvReac Type Severity Reaction Status Date / Time No Known Allergies Allergy Verified 07/11/24 12:33 Home Medications ?Medication ?Instructions ?Recorded ?Confirmed ?Type 17-iron(35 mg-5 mg)-folic 1 cap PO DAILY 09/12/21 08/03/24 History acid 1.2 mg-fish oil 400 mg capsule hydrocodone 5 mg-acetaminophen 325 1 tablet PO Q4H PRN pain #20 tabs 08/03/24 Rx mg tablet Laboratory Tests 08/03/24 05:41 RPR Non-reactive (NonReactive) Patient hx anesthesia problems: none Family hx anesthesia problems: none Results Review: All pre-operative results and documents have been reviewed as part of the pre- operative evaluation. [facility] Past Medical History Medical History Kidney stone Family History Family History Mother High cholesterol Father Hypertension Grandparent Pancreas cancer Diabetes mellitus Grandparent Cervical cancer Social History Social History Smoking status: Never smoker Second hand tobacco smoke exposure: No Substance use: never Do You Feel Safe in your Home?: Yes Lack of Transportation: No Lack of Food: Never True Current Housing: I Have Housing Concerned About Future Housing: No Difficulty Paying Gas/Electric Bills: No Difficulty Paying for Meds: No Currently Unemployed: No Education: High School Diploma/GED Difficulty w/ Childcare or Family Care: No Gender identity (if verbalized by the patient): Female Spiritual care concerns: No Anes - Eval Final PreProcedure Day of Procedure 08/04/24 07:09 Patient weight: overweight Heart: regular rate and rhythm Lungs: clear to auscultation Airway: Mallampati scale class III Neurological: alert and oriented Last oral intake: >/= 8 hours ASA classification: II Emergent: no Anesthetic plan: proceed Anesthesia type and monitoring: regional epidural and standard monitoring Results Review: All pre-operative results and documents have been reviewed as part of the pre- operative evaluation. Informed Consent: The patient's anesthetic plan and its attendant risks and benefits were discussed with the patient/family/POA. Questions were solicited and answers provided to the satisfaction of the patient/family/POA.
[2024-08-04] MEDS: LIDOCAINE HCL 1% LOCAL INJ 10 ML VIAL INFILTRATE (07:44)
--- NOTE | 2024-08-04 07:53 | W.PM.PROC2 ---
Procedure Note - Detailed Date of Procedure 08/04/24 Pre-op Diagnosis Sterilization Post-op Diagnosis Same Procedure Performed bilateral tubal ligation via modified Matthew method and Surgeon Armando Walker MD Anesthesia Epidural Findings normal female anatomy Description of Procedure patient was prepped draped in sterile fashion placed in the supine position. Under excellent epidural anesthesia an infraumbilical incision made. This was passed through the layer to the fascia fascia was incised carrier number our fashion bilaterally prior apparently mL by Harini clamps and by sharp dissection left fallopian tube was grasped in its midportion traversed to its fimbriated end returned 1st to the midportion to assure this was the tube. A knuckle of tube was formed with 0 chromic the portion between pierced and the distal and proximal legs free tied with 0 chromic the portion between cut passed off as portion of left fallopian tube. In similar fashion on the right midportion was grasped with a Edison clamp. Two 1st to its fimbriated and reefed traversed to the midportion of the knuckle of tube formed. This was free tied with 0 chromic distal and proximal legs were free tied with 0 chromic in the portion between passed off the table as portion right fallopian tube. Hemostasis was assured. Instruments were removed from the abdomen and accounted for the fascia closed with 0 Vicryl from end an. Skin closed with 4 Monocryl glue Q BL was 5cc. All sponge, needle, instrument counts were correct. She did receive 10cc of 1% xylocaine anesthesia locally in the incision at the termination the procedure Estimated Blood Loss 5 Pathology Yes ( bilateral portions of fallopian tube) Disposition PACU
[2024-08-04] MEDS: fentaNYL CITRATE INJ (*CRX) 100 MCG/2 ML VIAL 25 MCG IV PUSH ×6 (08:14→09:17)
[2024-08-04 09:10] LABS: Hematocrit 30.7 % (37.0-47.0); Hemoglobin 9.5 g/dL (12.0-15.0)
[2024-08-04] MEDS: MULTIVIT/MIN/PREN/FOL AC/IRON TABLET 1 TAB PO (10:05)
[2024-08-04] MEDS: POLYSACCHARIDE IRON COMPLEX 150 MG CAPSULE PO (10:05)
--- NOTE | 2024-08-04 10:05 | PC.NURSE ---
Met with patient to assess and discuss needs related to feeding. Mother states it is her intention to [breastfeed & pump and bottle feed]. Encouraged mother to breastfeed infant 8-12 times in 24 hours (approximately every 2-3 hours), watching for early feeding cues. If is sleepy, unwrap and place baby skin to skin. Mother went for a tubal this morning and says she will pump when she feels ready, but she was attempting to latch to the breast at this time. Baby was in a deep sleep state and wasn't able to awaken. Father had tried to give a bottle while mom was in surgery but baby hadn't taken any formula. Encouraged mom to give baby a little more time if she is wanting to get her to breast at this feeding and to closely observe for feeding cues. If she would rather pump and bottle feed, she can move towards that as she is feeling ready after surgery. Mother instructed to call for assistance if will not feed every 3 hours, if there is discomfort with , or if mother has any other questions or concerns. resources provided including the Mom and Baby Guide, admission folder and name/number on communication board. Mother verbalized understanding. Updated patient?s primary RN with education provided.?
[2024-08-04] MEDS: SIMETHICONE 80 MG TAB.CHEW PO ×3 (10:06→16:01)
[2024-08-04] MEDS: IBUPROFEN 600 MG TABLET PO ×2 (10:06→16:01)
[2024-08-04] MEDS: DOCUSATE SODIUM 100 MG CAPSULE PO (10:06)
[2024-08-04] MEDS: ACETAMINOPHEN 325 MG TABLET 650 MG PO (12:19)
--- NOTE | 2024-08-04 14:15 | WPDANLDPN2 ---
Anes-Prog Note L&D Date/Time: 08/04/24 14:15 Comfortable throughout: labor and delivery Neuraxial method: epidural Epidural/Spinal procedure site: clean & non-tender Neuro status: Neuro function grossly intact. Cardiovascular status: normal Respiratory status: normal Airway patency: baseline Mental status: baseline Post-Op hydration status: normal Vital Signs: Last Vital Signs Temp 98.3 F 08/04/24 12:01 Pulse 98 08/04/24 12:01 Resp 16 08/04/24 12:01 BP 119/76 08/04/24 12:01 Pulse Ox 97 08/04/24 12:01 O2 Del Method Room Air 08/04/24 09:15 Pain score (VAS): 0/10 I/O: Intake & Output 08/03/24 08/04/24 08/04/24 23:59 07:59 15:59 Intake Total 400 Balance 400 Post-procedural complaints: none Patient feedback: Patient satisfied with anesthetic care.
--- NOTE | 2024-08-04 15:00 | PC.NURSE ---
0705 Patient was taken to pre-op via stretcher for her tubal ligation procedure this morning. 0935 This patient, Dinesh Kang, was received from PACU on 08/04/24 at 0935.
--- NOTE | 2024-08-04 17:40 | PC.NURSE ---
Consulted with mother concerning needs and she shared her ability to independently latch infant optimally without pain. Observed latch; mother was feeding in cradle on the left breast. Baby appeared to have an appropriate latch but was sleepy and sucking intermittently. Mother understands stimulating to eat if needed, and adding in pumping and supplementing if does not feed effectively. Mom has her own pump, bottles, and formula at home that she prefers to use. meets the outcomes for weight, output, blood sugar and jaundice at this time. Reinforced understanding of milk production, transition of milk, signs of adequate intake, transition of stool, prevention/relief of engorgement, plugged ducts, mastitis, responsive watching for feeding cues, the different methods of stimulating to breastfeed 1-3 hours after the start of the last feeding, community resources, and when to call a provider using the resource of the feeding sheet along with the mom and baby guide. Mother voiced understanding of the information shared, is confident to continue effectively her at home, when to call for assistance, denies any additional assistance or education at this time. Reported to the Primary RN.
[2024-08-06 10:31] VITALS: BP 120/78; PULSE 82; RESP 20; TEMP 36.4; O2SAT 100
== END 2024-08-04 17:53 | disposition home or self-care (01) | DRG 798 ==
LOC: ANHLDR 15:01 → ANHOB2 19:36
PROVIDERS: Admitting Provider Obstetrics & Gynecology; Visit Provider Obstetrics & Gynecology
PROC: 0UB70ZZ Excision of Bilateral Fallopian Tubes, Open Approach (ICD-10-PCS; CPT 58605; principal; 2024-08-04 07:30)
DX: O80 Encounter for full-term uncomplicated delivery (principal); Z37.0 Single live birth; Z3A.39 39 weeks gestation of pregnancy; Z30.2 Encounter for sterilization
CPT/HCPCS: 36415; 85014; 85018; 85025; 86592; 86703; 86850; 86900; 86901; 88302; A9270; G0432; J2003; J2250; J2590; J2704; J2795; J3010; J7120